=== PATIENT | female | born 1950 | race African-American/Black ===

== ENCOUNTER 2025-10-20 13:30 | Outpatient (AMB) | payer MEDICARE, SELFPAY ==
--- NOTE | 2025-10-20 13:32 | A.OFFVIS_ITS ---
Vital Signs 3 10/20/25 13:38 Height 5 ft 8.5 in Weight 260 lb BMI 39.0 BP 185/79 H Blood Pressure Location Lt brachial Position Sitting Pulse 74 Pulse Source Pulse Oximeter Pulse Oximetry (%) 98 Oxygen Delivery Method Room Air Intake Visit Reasons: IMMENSE PAIN FROM A FALL Intake Note: Pain today 05/22 Food Chemist Required: No Accompanied by: Self / Same As Patient Allergies tirzepatide (From [employer]) Allergy (Unknown, Verified 10/20/25 13:54) Constipation HPI Comments Details: The patient is a 75 year old female presenting for evaluation of right-sided mid back pain. She reports falling in late August or early September, hitting her right side on her hardwood floor. While she had other falls that week, this specific incident precipitated the onset of her current pain, which has progressively worsened over the last two months to the point where it sometimes impairs her ability to walk. The pain is described as an aching, tender sensation in the mid-back that radiates up and down the right side and to the ribs. It is exacerbated by standing, breathing, bending, and general movements, and is relieved by sitting. The patient attends physical therapy twice a week but notes her pain is worse on the days she is not in therapy. She previously used tramadol, which she discontinued due to limited efficacy, and now only takes gabapentin for both this pain and her underlying neuropathy. X-rays of her back revealed no rib fractures but showed moderate arthritis in the lower thoracic, with bone spurs formation at T11-T12, and degenerative disc disease that is more pronounced in the lower back. She also has cervical and lumbar spondylosis with degenerative disc changes. Her pertinent past medical history includes type 2 diabetes with a recent HbA1c of 8.6, for which she takes insulin. She has a history of a stroke in late 2020 that affected her right side, for which she takes clopidogrel. 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 Socially, she reports consuming wine but denies eating sweets. She has noted weight gain and has difficulty standing for long periods to cook, a problem that began after her stroke and has been exacerbated by her current back pain. - Onset: The pain began approximately two months ago, in late August, after a fall. - Location: The pain is primarily located in the right mid-back. - Radiation: The pain radiates up and down the right side and involves the ribs. - Character: The pain is described as aching and tender. - Exacerbating factors: Pain is worse with standing, breathing, bending, general movements, and backward bending (extension). - Relieving factors: Sitting helps to alleviate the pain. - Interference with function: The pain has at times made it difficult to walk and has exacerbated an existing inability to stand for long periods, preventing her from cooking. - Analgesia: The patient currently uses gabapentin for her pain and associated neuropathy. - She discontinued tramadol early on as it provided only a few hours of relief. - Activities of Daily Living: Her pain interferes with her ability to walk and stand for long periods, which prevents her from cooking. - She attends physical therapy twice weekly, but reports increased pain on her days off from therapy. - Aberrant Drug Related Behaviors: The patient denies mixing alcohol with her medications and takes her gabapentin primarily at bedtime. [facility]LY [facility] Medical History Hypercholesterolemia Peripheral arterial disease Weakness Type 2 diabetes mellitus with vascular disease Hypertension History of stroke Glaucoma DVT (deep venous thrombosis) Aortic stenosis Blindness and low vision Social History Alcohol intake: current Alcohol intake frequency: a few times a week Alcohol type: wine Review of Systems Const Details: - Neurological: Reports symptoms of peripheral neuropathy. - Denies dizziness or falls related to alcohol use. - Denies headaches. - Musculoskeletal: Reports aching and tender pain in the right mid-back, radiating to the side and ribs, which worsens with movement and improves with sitting. - Reports pain with bending backward. - Ophthalmologic: Reports vision loss in her right eye secondary to glaucoma and stroke. All systems reviewed & are unremarkable except as noted in HPI and below Physical Exam Vital Signs: Last Vital Signs Pulse 74 10/20/25 13:38 BP 185/79 H 10/20/25 13:38 Pulse Ox 98 10/20/25 13:38 Oxygen Delivery Method Room Air 10/20/25 13:38 BMI result Body Mass Index 39.0 General: Appears afebrile. Alert and oriented. Mood and affect appropriate. Follows and participates in conversation appropriately. Respiratory effort is unlabored. No cough. Able to transition from sit to stand unassisted. Uses cane with ambulation. Ambulates with bilaterally normal heel strike and toe off. General: Yes no CVA tenderness Back/Spine/Pelvis Other: Limited lumbar ROM due to pain. Mild midline and right sided TTP in the lower thoracic and paraspinal regions, no TTP in cervical or lumbar regions. Demonstrates 5/5 strength of quadriceps bilaterally as well as flexion/dorsiflexion of bilateral feet against resistance. 2+ pedal pulses bilaterally. Straight leg rise with dorsiflexion negative bilaterally. Diminished patellar and achilles reflexes bilaterally. Facet loading test positive bilaterally. Back: no CVA tenderness Cervical Spine: cervical ROM normal, cervical muscular tenderness and No Cervical spine tenderness Thoracic/Lumbar Spine: thoracic and lumbar spine normal to inspection, No Thoracic/lumbar spine scar(s), Lasegue's sign negative, straight leg raise negative bilaterally, pain with thoraco-lumbar ROM, paraspinal muscle tenderness on the right in the lower thoracic and in the upper lumbar, thoraco-lumbar ROM limited, thoracic spinal tenderness (lower thoracic) and No lumbar spinal tenderness Sacroiliac joints: bilaterally nontender Results Reviewed Results Reviewed: Assessment & Plan Assessment & Plan (1) Spondylosis of thoracolumbar spine: Code(s): M47.815 - Spondylosis without myelopathy or radiculopathy, thoracolumbar region Category: Medical (2) Mid back pain on right side: Code(s): M54.9 - Dorsalgia, unspecified Category: Medical (3) Lumbar degenerative disc disease: Code(s): M51.369 - Other intervertebral disc degeneration, lumbar region without mention of lumbar back pain or lower extremity pain Category: Medical (4) Chronic pain syndrome: Code(s): G89.4 - Chronic pain syndrome Category: Medical Plan The patient's right-sided back pain is assessed to be musculoskeletal in origin, resulting from her fall two months ago, which has aggravated her underlying moderate thoracolumbar arthritis as seen on x-ray. Given the patient's elevated HbA1c of 8.6, she is not a candidate for therapeutic steroid injections or peripheral nerve stimulation. Steroid injections are also relatively contraindicated due to her history of glaucoma with high intraocular pressures. The plan is to proceed with diagnostic right-sided medial branch blocks at T11, T12, and L1 with local and fluoroscopy. If these blocks provide her significant and temproary pain relief, she will be considered a candidate for a subsequent radiofrequency ablation (RFA) procedure for longer-term pain control. Clearance will be obtained from her PCP to temporarily discontinue her clopidogrel prior to the procedure. Expectations, risks and benefits were reviewed. Patient is aware she will be contacted to schedule this procedure. All questions and concerns have been answered and patient agreed with the treatment plan. Follow up after injections and sooner as needed. Patient was informed and verbally consented to the use of an ambient scribe for clinic note documentation during this visit. Coding Level of Care Code New Pt Level 4 (18163) Diagnoses Spondylosis of thoracolumbar spine M47.815 Mid back pain on right side M54.9 Lumbar degenerative disc disease M51.369 Chronic pain syndrome G89.4
[2025-10-20 13:38] VITALS: BP 185/79; PULSE 74; O2SAT 98; BMI 39.0
--- OUTSIDE RECORDS SUMMARY | 2025-10-20 22:17 | XMS_ITS | Clinical Summary ---
Author Organization [address] Address [address] [place] [phone] Phone Care Team Providers Care Radar Repairer Name Role Phone Ajay Alex Primary Care Provider [phone] Allergies No known active allergies Medications carvediloL (COREG) 25 mg tablet Take 1 Tablet by mouth 2 times daily (with meals). 07/09/2024 Active amLODIPine (NORVASC) 10 mg tablet TAKE 1 TABLET BY MOUTH ONCE DAILY 05/09/2024 Active clopidogreL (PLAVIX) 75 mg tablet TAKE ONE TABLET BY MOUTH EVERY DAY 05/02/2024 Active chlorthalidone (HYGROTON) 25 mg tablet Take 1 Tablet by mouth daily. 05/02/2024 Active blood-glucose meter,continuous (FreeStyle Luis 3 [place]) misc 1 Device by Does not apply route daily. 12/27/2023 Active ammonium lactate (LAC-HYDRIN) 12 % lotion Apply to soles of feet daily. At night wear socks to bed 12/19/2023 Active gabapentin (NEURONTIN) 400 mg capsule Take 1 Capsule by mouth 3 times daily. 12/18/2023 Active insulin syringe-needle U-100 1/2 mL 28 gauge syringe Use 4 times a day with insulin 05/24/2021 Active brimonidine (ALPHAGAN) 0.2 % ophthalmic solution 1 Drop 3 times daily. Active dorzolamide-karl loL (COSOPT) 22.3-6.8 mg/mL ophthalmic solution apply 1 Drop to the eye 2 times daily. Both eyes. Active lisinopril (PRINIVIL,ZESTRI L) 40 mg tablet TAKE ONE TABLET BY MOUTH EVERY DAY 90 tablet 1 10/15/2024 Active atorvastatin (LIPITOR) 80 mg tablet TAKE ONE TABLET BY MOUTH ONCE DAILY 90 tablet 1 10/15/2024 Active blood-glucose sensor (FreeStyle Luis 3 Sensor) deviceIndication s:Type 2 diabetes mellitus without complications, unspecified whether exterminator termite insulin use ([facility] V24, [facility] V28) 1 Device by Does not apply route every 14 days. 6 each 3 08/15/2025 Active freestyle (FreeStyle Lancets) 28 gauge lancetsIndicatio ns:Type 2 diabetes mellitus without complications, unspecified whether exterminator termite insulin use ([facility] V24, [facility] V28) Use to check BS daily 400 each 11 08/15/2025 Active insulin glargine (Lantus Solostar U-100 Insulin) 100 unit/mL (3 mL) injection penIndications:T ype 2 diabetes mellitus without complications, unspecified whether exterminator termite insulin use ([facility] V24, [facility] V28) Inject 40 Units into the skin every evening for 90 days. 45 mL 3 08/15/2025 Active metFORMIN (GLUCOPHAGE) 500 mg tabletIndication s:Type 2 diabetes mellitus without complications, unspecified whether exterminator termite insulin use ([facility] V24, [facility] V28) Take 1 Tablet by mouth 2 times daily (with meals). 180 tablet 3 08/15/2025 Active blood sugar diagnostic (FreeStyle Lite Strips) test strip Use to check BS daily 100 each 12 08/15/2025 08/15/20 26 Active blood-glucose meter kit Use to check BS daily 1 each 08/15/2025 Active Active Problems Problem Noted Date Diagnosed Date Chronic venous insufficiency of lower extremity 12/18/2024 Leg pain, bilateral 12/18/2024 Osteopenia 06/11/2024 Right sided weakness 07/27/2022 Peripheral vascular disease 06/15/2022 Aortic stenosis 12/30/2021 Overview (10/03/2024): Last Assessment & Plan: Patient's is mild and not likely to give her symptoms. Continue with periodic evaluations. Diabetic retinopathy 08/09/2020 Diabetes mellitus with cataract 06/12/2018 Unintentional weight loss 02/27/2018 Overview (10/03/2024): 08/2016: 12-20 lbs in about 4 months time Glaucoma 01/31/2018 HTN (hypertension) 01/31/2018 Overview (10/03/2024): Last Assessment & Plan: Patient's blood pressure is well controlled on current treatment plan. Continue current regimen with periodic follow up Hypercholesteremia 01/31/2018 Overview (10/03/2024): Last Assessment & Plan: Patient's LDL is reasonably well controlled. If her LDL is above her target of <70 at her next check, can suggest transition to crestor. Updated lipid profile ordered to be completed at her convenience. Obesity 01/31/2018 Type 2 diabetes mellitus without complications 0 01/31/2018 Encounters Date Type Department Care Team Description 09/04/2025 11:00 AM EDT - 09/04/2025 11:59 PM EDT Hospital Encounter [facility] CT Scan [address] [place] [phone] Headache; Status post fall Discharge Disposition: Home or Self Care 08/15/2025 11:30 AM EDT Office Visit Endocrinology [address] [phone] Moraima Tabares PA Type 2 diabetes mellitus without complications, unspecified whether residential insulin use ([facility] V24, [facility] V28) (Primary Dx); Secondary hypertension; Hypercholesteremia from Last 3 Months Immunizations Immunization Administration Dates Next Due Pfizer SARS-CoV-2 COVID-19, mRNA, LNP-S, preservative free 03/02/2021 Pneumococcal conjugate 13 va lent (Prevnar 13, PCV13) 2mo and older 09/06/2016 Pneumococcal conjugate 20 va lent (Prevnar 20, PCV 20) 2mo and older 04/18/2023 Pneumococcal polysaccharide 23 valent (Pneumovax 23) 2yo and older 01/31/2018,11/13/2012 Tdap Tetanus diptheria acell ular pertussis (Boostrix; Adacel) 7yo and older 01/10/2019 Surgical History Surgery Date Site/Laterality Comments COLONOSCOPY 1999 PROCEDURE: HISTORICAL COLONOSCOPY; COMMENT: per pt, screening colonoscopy 1999 Medical History Medical History Date Comments Glaucoma 01/31/2018 DX:Glaucoma HTN (hypertension) 01/31/2018 DX:HTN (hyper tension) Hypercholesteremia 01/31/2018 DX:Hyperchole steremia Type 2 diabetes mellitus wit hout complications ([facility] V24, [facility] V28) 01/31/2018 DX:Type 2 kesha betes mellitus without complications (HCC) Unintentional weight loss 02/27/2018 DX:Uni ntentional weight loss; COMMENT: 08/2016: 12-20 lbs in about 4 months time History of DVT of lower extremity 02/27/2018 DX:History of DVT of lower extremity Obesity 01/31/2018 DX:Obesity Family history of breast cancer 02/01/2018 DX:Family history of breast cancer; COMMENT: Mother 30's, Aunt 44 Colon cancer screening 01/31/2018 DX:Colon cancer screening; COMMENT: Colonoscopy per pt approx 2006. Diabetic retinopathy ([facility] V24, [facility] V28) 08/09/2020 DX:Diabetic retinopathy (HCC ) Cerebrovascular accident (CV A) ([facility] V24, [facility] V28) 12/29/2021 DX:Cerebrovascular accident (CVA) ([facility]) Family History Medical History Relation Name Comments Breast cancer Aunt 1 maternal Glaucoma Aunt 2 maternal Other: Other Brother 1 aneurysm Coronary artery disease Father Heart attack Father Prostate cancer Maternal Grandfather Breast cancer Mother Coronary artery disease Mother Glaucoma Mother Hypertension Mother CAD, Breast CA in her 30's Breast cancer Sister Diabetes Sister Relation Name Status Comments Aunt 1 maternal Aunt 2 maternal Brother 1 Brother 2 Alive Father Maternal Grandfather Mother Sister Social History Tobacco Use Types Packs/Day Years Used Date Smoking Tobacco: Former Cigarettes 1 30 0 11/13/1968 - 11/13/1998 Smokeless Tobacco: Never Alcohol Use Standard Drinks/Week Comments Yes 1 (1 standard drink = 0.6 oz pur e alcohol) Comments Unknown Sex and Gender Information Value Date Recorded Sex Assigned at Not on file Legal Sex Female 7:54 PM EST Gender Identity Not on file Sexual Orientation Not on file Last Filed Vital Signs Vital Sign Reading Time Taken Comments Blood Pressure 137/68 08/15/2025 11:39 AM EDT Pulse 73 08/15/2025 11:39 AM EDT Temperature 36.4 C (97.5 F) 08/15/2025 11:23 AM EDT Respiratory Rate - - Oxygen Saturation 95% 06/06/2024 2:5 7 PM EDT at rest, room air Inhaled Oxygen Concentration - - Weight 115 kg (253 lb 12.8 oz) 08/15/2025 11:23 AM EDT Height 174 cm (5' 8.5 ) 08/15/2025 11:2 3 AM EDT Body Mass Index 38.03 08/15/2025 11:23 AM EDT Plan of Treatment Upcoming Encounters Date Type Department Care Team (Late st Contact Info) Description 11/20/2025 10:30 AM EST Office Visit Orthopedic Surgery - [place] [address] [phone] Parviz Gibbons, DPM [address] [phone] Health Maintenance Due Date Last Done Comments RSV Immunization Adult Patients (1 - Risk 50-74 years 1-dose series) 2001 Zoster Vaccines (1 of 2) 2001 Falls Risk Assessment 10/22/2022 Medicare Annual Wellness Visit 10/22/2022 Social Influencers of Health Screening 10/22/2022 Depression Screening 11/13/2024 Diabetes: Blood Sugar Control Test (HGBA1C) 01/09/2025 07/09/2024, 07/09/2024, 04/02/2024, Additional history exists Diabetes: Annual Urine Albumin-Creatinine Ratio (uACR) 04/02/2025 04/02/2024 COVID-19 Vaccine ( season) 2025 10/15/2021, 03/26/2021, 03/02/2021 Influenza Vaccine (#1) 2025 Diabetes: Annual GFR (Glomerular Filtration Rate) 09/30/2025 09/30/2024, 12/25/2023 Hypertension/CHF/CAD Annual BMP Blood Test 09/30/2025 09/30/2024, 12/25/2023 Breast Cancer Screening 03/11/2026 03/11/20 24, 03/06/2024, 03/06/2024, Additional history exists Diabetes: Annual Foot Exam 04/29/2026 04/29/2025, Diabetes: Annual Retina Eye Exam 08/05/2026 08/05/2025, 05/14/2024 Colorectal Cancer Screening: FIT-DNA (Cologuard) 06/16/2027 06/16/2024, 06/16/2024 Cholesterol Screening (Lipid Panel) 12/25/2028 12/25/2023, 08/19/2016 DTaP,Tdap,and Td Vaccines (2 - Td or Tdap) 01/10/2029 01/10/2019 Osteoporosis Screening (Bone Density Screening) 06/11/2034 06/11/2024, 06/11/2024 Hepatitis C Screening Completed 01/10/2019, 016 Pneumococcal Vaccine: 50+ Years Completed 04/18/2023, 01/31/2018, 09/06/2016, Additional history exists HIB Vaccines Aged Out No longer eligi ble based on patient's age to complete this topic HPV Vaccines Aged Out No longer eligi ble based on patient's age to complete this topic Hepatitis A Vaccines Aged Out No long er eligible based on patient's age to complete this topic Hepatitis B Vaccines Aged Out No long er eligible based on patient's age to complete this topic IPV Vaccines Aged Out No longer eligi ble based on patient's age to complete this topic MMR Vaccines Aged Out No longer eligi ble based on patient's age to complete this topic Meningococcal ACWY Vaccine Aged Out N o longer eligible based on patient's age to complete this topic Meningococcal B Vaccine Aged Out No l onger eligible based on patient's age to complete this topic RSV Immunization Patients Under 20 months Aged Out No longer eligible based on patient's age to complete this topic Varicella Vaccines Aged Out No longer eligible based on patient's age to complete this topic Procedures Procedure Name Priority Date/Time Associated Diagnosis Comments CT HEAD WO CONTRAST Routine 09/04/2025 1 1:26 AM EDT Headache Status post fall POC GLUCOSE Routine 08/15/2025 11:39 AM EDT Type 2 diabetes mellitus without complications, unspecified whether residential insulin use ([facility] V24, [facility] V28) BASIC METABOLIC PANEL Routine 09/30/2024 1:35 PM EST Primary open angle glaucoma of both eyes HEMOGLOBIN A1C Routine 07/09/2024 FIT-DNA Routine 06/16/2024 [facility] DEXA AXIAL SKELETON Routine 06/11/2024 11:36 AM EDT Encounter for screening for osteoporosis DIABETES EYE EXAM Routine 05/14/2024 URINE ALBUMIN CREATININE RATIO Routine 04/02/2024 [facility] SCREENING DIGITAL Routine 03/06/2024 5:01 PM EDT Encounter for screening mammogram for malignant neoplasm of breast LIPID PANEL Routine 12/25/2023 DIABETES FOOT EXAM Routine 12/19/2023 HEPATITIS C SCREENING Routine 01/10/2019 from Last 3 Months or Most Recently Relevant to Health Maintenance Results * CT Head wo Contrast (09/04/2025 11:26 AM EDT) Anatomical Region Laterality Modality Head and Neck Computed Tomogra phy 09/09/2025 5:38 PM EDT Impressions 09/09/2025 5:40 PM EDT NO ACUTE INTRACRANIAL ABNORMALITY. -------- FINAL REPORT -------- Dictated By: Dileep Phoenix Dictated Date: 09/09/2025 17:38 ET Assigned Physician: Dileep Phoenix Reviewed and Electronically Signed By: Dileep Phoenix Signed Date: 09/09/2025 17:40 ET Workstation ID: [id number] Transcribed By: Self Edit Transcribed Date: 09/09/2025 17:38 ET Narrative 09/09/2025 5:40 PM EDT PROCEDURE: HEAD CT INDICATION: left sided injury to head TECHNIQUE: CT of the head without intravenous contrast. Multiplanar reformats. The examination was performed utilizing dose reduction techniques. Total DLP 1065 COMPARISON: No priors available. FINDINGS: No acute territorial infarct, mass effect, or intracranial hemorrhage. Mild scattered periventricular and subcortical white matter hypodensities are most likely related to chronic small vessel ischemic change. CSF spaces commensurate for degree of volume loss. No hydrocephalus. Visualized paranasal sinuses are clear. Mastoid air cells are clear. No calvarial fracture. Procedure Note Dileep Phoenix MD - 09/09/2025 PROCEDURE: HEAD CT INDICATION: left sided injury to head TECHNIQUE: CT of the head without intravenous contrast. Multiplanarreformats. The examination was performed utilizing dose reductiontechniques. Total DLP 1065 COMPARISON: No priors available. FINDINGS: No acute territorial infarct, mass effect, or intracranial hemorrhage. Mild scattered periventricular and subcortical white matter hypodensitiesare most likely related to chronic small vessel ischemic change. CSF spaces commensurate for degree of volume loss. No hydrocephalus. Visualized paranasal sinuses are clear. Mastoid air cells are clear. No calvarial fracture. IMPRESSION: NO ACUTE INTRACRANIAL ABNORMALITY. -------- FINAL REPORT -------- Dictated By: Dileep Phoenix Dictated Date: 09/09/2025 17:38 ET Assigned Physician: Dileep Phoenix Reviewed and Electronically Signed By: Dileep Phoenix Signed Date: 09/09/2025 17:40 ET Workstation ID: [id number] Transcribed By: Self Edit Transcribed Date: 09/09/2025 17:38 ET us Ajay JUAREZ IMG CT PROCEDURES Final Resul t * POC glucose manually resulted (08/15/2025 11:39 AM EDT) Glucose POC 94 mg/dL Blood Capillary blood specimen / Unknown 08/15/2025 11:39 AM EDT Moraima JUAREZ POINT OF CARE TEST ENTER/ED IT ORDERABLES Final Result * (ABNORMAL) Basic metabolic panel (09/30/2024 1:35 PM EST) Sodium 142 133 - 145 mmol/L LAB CHEMISTRY METHOD 09/30/2024 5:28 PM [facility] Potassium 3.7 3.5 - 5.5 mmol/L LAB CHEMISTRY METHOD 09/30/2024 5:28 PM [facility] Chloride 107 96 - 110 mmol/L LAB CHEMISTRY METHOD 09/30/2024 5:28 PM [facility] CO2 26 21 - 32 mmol/L LAB CHEMISTRY METHOD 09/30/2024 5:28 PM [facility] Anion Gap 9 3 - 11 LAB CHEMISTRY METHOD 09/30/2024 5:28 PM [facility] Glucose 186(H) 70 - 100 mg/dL LAB CHEMISTRY METHOD 09/30/2024 5:28 PM [facility] BUN 32(H) 5 - 25 mg/dL LAB CHEMISTRY METHOD 09/30/2024 5:28 PM [facility] Creatinine 0.94 0.50 - 1.10 mg/dL LAB CHEMISTRY METHOD 09/30/2024 5:28 PM [facility] eGFR 65 >=60 mL/min/1. 73m2 LAB CHEMISTRY METHOD 09/30/2024 5:28 PM [facility] Comment:Calculation based on the Chronic Kidney Disease Epidemiology Collaboration (CKD-EPI) equation refit without adjustment for race. BUN/Creatinine Ratio 34.0 LAB CHEMISTRY METHOD 09/30/2024 5:28 PM [facility] Calcium 9.8 8.5 - 10.5 mg/dL LAB CHEMISTRY METHOD 09/30/2024 5:28 PM [facility] Blood Venous blood specimen / Unknown Venipuncture / Unknown 09/30/2024 1:35 PM EST 09/30/2024 1:35 PM EST Mark Schmitt MD LAB BLOOD ORDERABLES Final Resul t [facility] [address] [place] [address], * (ABNORMAL) Hemoglobin A1c (07/09/2024) [facility] Hemoglobin A1C 7.6(A) <=6.5 % Blood Venous blood specimen / Unknown Historical Provider LAB BLOOD ORDERABLES Tracy l Result * FIT-DNA (Cologuard) (06/16/2024) [facility] Colorectal Cancer Screening: FIT-DNA (Cologuard) Negative, Abstracted Historical Provider HEALTH MAINTENANCE Final Result * [facility] DEXA AXIAL SKELETON (06/11/2024 11:36 AM EDT) Anatomical Region Laterality Modality Mammography 06/11/2024 10:5 4 AM EDT Narrative 06/11/2024 11:[address] [facility] Diagnostic Imaging Department [address] [place] [address] Patient: AURELIANO ABREU/Age/Sex: 1950 - 73 - F Unit#: [id number] Location/Status: SPDIMAM/REG CLI Mnemonic/Ordering Site: MAMDEXAAX/SPMAM Ordering Physician: UNIQUE MCHUGH MD [facility] Dexa Axial Skeleton - 06/11/24 - 1125 Report Status:Signed HISTORY: The patient is a 73-year-old postmenopausal female with clinical concern for metabolic bone disease. FINDINGS: Dual energy x-ray absorptiometry of the lumbar spine and femurs is performed. The mean bone mineral density at L1-L4 is 0.944 gm/cm2 which is 80% of that of young normals and 79% of that of age matched controls. This yields a T-score of -2.0 and a Z-score of -2.1 which is diagnostic of osteopenia. The mean bone mineral density of the femurs bilaterally is 1.132 gm/cm2 which is 112% of that of young normals and 110% of that of age matched controls. This yields a T-score of 1.0 and a Z-score of 0.8 and there is therefore no evidence of osteoporosis or osteopenia here. IMPRESSION: 1. Osteopenia. 2. FRAX analysis yields a 10-year probability of major osteoporotic fracture of 5.3% and a 10-year probability of hip fracture of 0.4%. Code 88336 Dictating Physician: REBECCA SOTO MD Electronically Signed by: REBECCA SOTO MD Dic Date/Time: 06/11/24 1135 Sign date/Time: 06/11/24 1136 Procedure Note Rebecca Soto MD - 08/28/2024 [facility] Diagnostic Imaging Department [address] [place] [address] Patient: AURELIANO ABREU/Age/Sex: 1950 - 73 - F Unit#: [id number] [facility] CLI Mnemonic[facility] Ordering Physician: UNIQUE MCHUGH MD [facility] Dexa Axial Skeleton - 06/11/24 - 1125 Report Status:Signed HISTORY: The patient is a 73-year-old postmenopausal female withclinical concern for metabolic bone disease. FINDINGS: Dual energy x-ray absorptiometry of the lumbar spine and femursis performed. The mean bone mineral density at L1-L4 is 0.944 gm/cm2 which is80% of that of young normals and 79% of that of age matched controls. Thisyields a T-score of -2.0 and a Z-score of -2.1 which is diagnostic of osteopenia. The mean bone mineral density of the femurs bilaterally is 1.132 gm/fp1nowoc is 112% of that of young normals and 110% of that of age matched controls.This yields a T-score of 1.0 and a Z-score of 0.8 and there is therefore noevidence of osteoporosis or osteopenia here. IMPRESSION: 1. Osteopenia. 2. FRAX analysis yields a 10-year probability of major osteoporoticfracture of 5.3% and a 10-year probability of hip fracture of 0.4%. Code 22069 Dictating Physician: REBECCA SOTO MD Electronically Signed by: REBECCA SOTO MD Dic Date/Time: 06/11/24 1135 Sign date/Time: 06/11/24 1136 Unique Mchugh MD IMG BI PROCEDURES Final Result * Diabetes Eye Exam (05/14/2024) Pathologist [facility] Diabetes: Annual Retina Eye Exam Abstracted Historical Provider HEALTH MAINTENANCE Final Result * Urine Albumin Creatinine Ratio (04/02/2024) [facility] Urine Albumin Creatinine Ratio Abstracted Historical Provider HEALTH MAINTENANCE Final Result * [facility] SCREENING DIGITAL (03/06/2024 5:01 PM EDT) Anatomical Region Laterality Modality Mammography 03/06/2024 12:5 5 PM EDT Narrative 03/06/2024 5:[address] [facility] Diagnostic Imaging Department [address] [place] [address] Patient: AURELIANO ABREU /Age/Sex: 1950 - 73 - F Unit#: [id number] Location/Status: [facility] CLI Mnemonic/Ordering Site: [facility] Ordering Physician: UNIQUE MCHUGH MD [facility] Screening Digital - 03/06/24 - 1342 Report Status:Signed EXAM: [facility] Screening Digital EXAM DATE AND TIME: 03/06/2024 1:43 PM HISTORY: Screening. Family history of breast carcinoma including mother and sister. COMPARISON: 07/24/20, 05/07/19, 03/26/18 TECHNIQUE: Bilateral digital breast tomosynthesis was performed in the CC and MLO projections. Computer aided detection with Inneractive 3D 3.1 was employed. TISSUE DENSITY: b. There are scattered areas of fibroglandular density. FINDINGS: A small group of calcifications is seen in the anterior right breast without associated mass. Spot compression magnification views are recommended. There are multiple additional groups of calcifications elsewhere in both breasts which appear very coarse and benign in appearance. Suspect the small group in the anterior breast represent part of the same process. Multiple benign rim calcifications are scattered bilaterally. A circumscribed 9 mm nodule remains stable in the upper outer right breast and there is a similar nodule in the posterolateral left breast, also unchanged. No architectural distortion is seen. Vascular calcification is present. The skin is unremarkable. IMPRESSION: 1. Small group of calcifications in the anterior right breast, likely related to a benign process but increased from the previous studies. Spot compression magnification views are recommended. 2. No mammographic evidence of malignancy is seen in the left breast. No significant change. BI-RADS: Category 0: Incomplete - Need Additional Imaging Evaluation RECOMMENDATION(S): 1: Special mammographic view(s) needed RIGHT Dictating Physician: TASH CASON MD Electronically Signed by: TASH CASON MD Dic Date/Time: 03/06/24 1653 Sign date/Time: 03/06/24 1701 Procedure Note Tash Cason MD - 07/01/2024 [facility] Diagnostic Imaging Department [address] [place] [address] Patient: AURELIANO ABREU D.O.B./Age/Sex: 1950 - 73 - F Unit#: [id number] Location/Status: [facility] CLI Mnemonic/Ordering Site: [facility] Ordering Physician: UNIQUE MCHUGH MD [facility] Screening Digital - 03/06/24 - 1342 Report Status:Signed EXAM: [facility] Screening Digital EXAM DATE AND TIME: 03/06/2024 1:43 PM HISTORY: Screening. Family history of breast carcinoma including motherand sister. COMPARISON: 07/24/20, 05/07/19, 03/26/18 TECHNIQUE: Bilateral digital breast tomosynthesis was performed in the CCand MLO projections. Computer aided detection with [employer] 3D 3.1was employed. TISSUE DENSITY: b. There are scattered areas of fibroglandular density. FINDINGS: A small group of calcifications is seen in the anterior right breastwithout associated mass. Spot compression magnification views are recommended. There are multiple additional groups of calcifications elsewhere in both breasts which appear very coarse and benign in appearance. Suspect thesmall group in the anterior breast represent part of the same process. Multiple benign rim calcifications are scattered bilaterally. Acircumscribed 9 mm nodule remains stable in the upper outer right breast and there is asimilar nodule in the posterolateral left breast, also unchanged. Noarchitectural distortion is seen. Vascular calcification is present. The skin is unremarkable. IMPRESSION: 1. Small group of calcifications in the anterior right breast, likelyrelated to a benign process but increased from the previous studies. Spotcompression magnification views are recommended. 2. No mammographic evidence of malignancy is seen in the left breast. No significant change. BI-RADS: Category 0: Incomplete - Need Additional Imaging Evaluation RECOMMENDATION(S): 1: Special mammographic view(s) needed RIGHT Dictating Physician: TASH CASON MD Electronically Signed by: TASH CASON MD Dic Date/Time: 03/06/24 1658 Sign date/Time: 03/06/24 1701 Unique Mchugh MD IMG BI PROCEDURES Final Result * Lipid panel (12/25/2023) [facility] LDL/HDL Ratio 2 0 - 4 Triglycerides 61 0 - 150 mg/dL Cholesterol 148 0 - 200 mg/dL HDL 79 >=40 mg/dL LDL Cholesterol 57 0 - 100 mg/dL Blood Venous blood specimen / Unknown Historical Provider LAB BLOOD ORDERABLES Tracy l Result * Diabetes Foot Exam (12/19/2023) [facility] Diabetes: Annual Foot Exam Abstracted Historical Provider HEALTH MAINTENANCE Final Result * Hepatitis C Screening (01/10/2019) [facility] Hepatitis C Screening Abstracted us Historical Provider HEALTH MAINTENANCE Final Result from Last 3 Months or Most Recently Relevant to Health Maintenance Insurance [employer] MEDICARE Advance Directives Documents on File Type Date Recorded Patient Home Manager Expl anation Health Care Decision (hx) 10/25/2021 AD LENZ DIRECTIVE Health Care Decision (hx) 10/25/2021 AD LENZ DIRECTIVE Health Care Decision (hx) 10/25/2021 AD LENZ DIRECTIVE Health Care Decision (hx) 10/25/2021 AD LENZ DIRECTIVE Health Care Decision (hx) 10/25/2021 AD LENZ DIRECTIVE Health Care Decision (hx) 10/25/2021 AD LENZ DIRECTIVE Health Care Decision (hx) 10/25/2021 AD LENZ DIRECTIVE Health Care Decision (hx) 10/25/2021 AD LENZ DIRECTIVE Health Care Decision (hx) 10/25/2021 AD LENZ DIRECTIVE Health Care Decision (hx) 10/25/2021 AD LENZ DIRECTIVE Health Care Decision (hx) 10/25/2021 AD LENZ DIRECTIVE Health Care Decision (hx) 10/25/2021 AD LENZ DIRECTIVE Health Care Decision (hx) 10/25/2021 AD LENZ DIRECTIVE Health Care Decision (hx) 10/25/2021 AD LENZ DIRECTIVE Health Care Decision (hx) 10/25/2021 AD LENZ DIRECTIVE Health Care Decision (hx) 10/25/2021 AD LENZ DIRECTIVE Health Care Decision (hx) 10/25/2021 AD LENZ DIRECTIVE Health Care Decision (hx) 10/25/2021 AD LENZ DIRECTIVE Health Care Decision (hx) 10/25/2021 MARYJO LENZ DIRECTIVE Care Teams Radar Repairer Relationship Specialty Start Date End Date Ajay Alex PA [address] [place] [address] PCP - General Primary Care 04/25/25
--- OUTSIDE RECORDS SUMMARY | 2025-10-20 22:17 | XMS_ITS | Encounter Summary ---
Author Organization [facility] Address [address] [place] [address] Care Team Providers Care Hardness Inspector Name Role Phone Gus Veras MD Primary Care Provider [phone] Encounter Details Date Type Department Care Team (Late st Contact Info) Description 08/18/2016 Scanned Document [facility] Internal Medicine [facility]. [address] [facility] [address] [place], [place] [id number] Gus Veras MD [address] [place] [phone] Social History Tobacco Use Types Packs/Day Years Used Date Smoking Tobacco: Never Assessed Comments Unknown Sex and Gender Information Value Date Recorded Sex Assigned at Female 09/21/2021 2:16 PM EST Legal Sex Female 10:46 AM EDT Gender Identity Female 09/21/2021 2:16 PM EST Sexual Orientation Straight 09/21/2021 2: 16 PM EST documented as of this encounter Plan of Treatment Not on file documented as of this encounter Visit Diagnoses Not on filedocumented in this encounter Care Teams Hardness Inspector Relationship Specialty Start Date End Date Gus Veras MD [address] [place] [phone] PCP - General Internal Medicine 08/19/16 09/12/18 documented as of this encounter
--- OUTSIDE RECORDS SUMMARY | 2025-10-20 22:17 | XMS_ITS | Clinical Summary ---
Author Organization [facility] Address [address] [facility] [address] [place] [id number] Phone Care Team Providers Care Asphalt Heater Operator Name Role Phone Unavailable Primary Care Provider Unavailabl e Social History Tobacco Use Types Packs/Day Years Used Date Smoking Tobacco: Never Assessed Education Answer Date Recorded Are you interested in more education? Not on jarvis e 03/11/2023 Are you concerned about learning? Not on file 03/11/2023 No 03/11/2023 No 03/11/2023 Digital Access Answer Date Recorded No 04/11/2023 No 04/11/2023 Reliable internet access at home? Not on file 04/11/2023 Device with a working camera? Not on file Comments Unknown Sex and Gender Information Value Date Recorded Sex Assigned at Not on file Legal Sex Female 8:15 AM EST Gender Identity Not on file Sexual Orientation Not on file Plan of Treatment Not on file Medical Devices Not on file Additional Source Comments The information contained in this document represents components of the legal health record. It is not the complete legal health record.[facility]
--- OUTSIDE RECORDS SUMMARY | 2025-10-20 22:17 | XMS_ITS | Clinical Summary ---
Author Organization [address] [id number] Care Team Providers Care Cloud Infrastructure Architect Name Role Phone Unavailable Primary Care Provider Unavailabl e Allergies No known active allergies Medications latanoprost (XALATAN) 0.005 % ophthalmic solution 1 drop nightly. Acti ve dorzolamide-karl lol (COSOPT) 22.3-6.8 mg/mL ophthalmic solution 1 drop 2 (two) times daily. Active lancets lancets Test 4 x daily. Onetouch Delica lancet 100 each 3 6 Active blood sugar diagnostic (ONETOUCH ULTRA TEST) Strp Test 4 x daily 200 each 5 6 Active dulaglutide (TRULICITY) 0.75 mg/0.5 mL PnIjIndications: Type 2 diabetes, HbA1c goal < 7% (HC Code) (HC CODE) Inject 0.75 mg under the skin every 7 days. 4 Syringe 3 6 Active lisinopril (PRINIVIL,ZESTRI L) 40 MG tablet Take 1 tablet (40 mg total) by mouth daily.. 90 tablet 3 7 Active metFORMIN (GLUCOPHAGE XR) 500 MG 24 hr tablet Take 4 tablets (2,000 mg total) by mouth daily with dinner.. 360 tablet 3 7 Active amLODIPine (NORVASC) 10 MG tablet TAKE 1 TABLET BY MOUTH DAILY 30 tablet 7 Active insulin glargine (TOUJEO) 300 unit/mL (1.5 mL) subcutaneous injection pen 30 units daily 15 mL 8 Active pen needle, diabetic 32 gauge x 1/4 Ndle Inject 30 Units under the skin nightly.. novofine pen needles, test once daily 100 each 5 8 Active atorvastatin (LIPITOR) 20 MG tablet TAKE 1 TABLET BY MOUTH DAILY 30 tablet 8 Active chlorthalidone (HYGROTEN) 25 MG tablet TAKE 1 TABLET BY MOUTH DAILY 30 tablet 8 Active metoprolol succinate (TOPROL-XL) 50 MG 24 hr tablet TAKE 1 TABLET BY MOUTH DAILY WITH OR IMMEDIATLEY FOLLOWING A MEAL 30 tablet 8 Active Active Problems Problem Noted Date Diagnosed Date Type 2 diabetes, HbA1c goal < 7% (HC Code) 09/06 Essential hypertension 09/06/2016 Hyperglycemia 09/06/2016 Non morbid obesity due to excess calories 2015 Immunizations Immunization Administration Dates Next Due Pneumococcal conjugate PCV 13 09/06/2016 Pneumococcal polysaccharide PPSV23 11/13/2012 Family History Medical History Relation Name Comments Heart disease Father Cancer Maternal Aunt 1 breast Glaucoma Maternal Aunt 2 Cancer Maternal Grandfather prostat e Cancer Maternal Grandmother Cancer Mother breast Heart disease Mother Hypertension Mother Cancer Sister breast Diabetes Sister Hypertension Sister Relation Name Status Comments Father Maternal Aunt 1 Maternal Aunt 2 Maternal Grandfather Maternal Grandmother Mother Sister Social History Tobacco Use Types Packs/Day Years Used Date Smoking Tobacco: Never Alcohol Use Standard Drinks/Week Comments Yes 0 (1 standard drink = 0.6 oz pur e alcohol) Comments Unknown Sex and Gender Information Value Date Recorded Sex Assigned at Female 09/21/2021 2:16 PM EST Legal Sex Female 10:46 AM EDT Gender Identity Female 09/21/2021 2:16 PM EST Sexual Orientation Straight 09/21/2021 2: 16 PM EST 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 Not on file Not on file Last Filed Vital Signs Vital Sign Reading Time Taken Comments Blood Pressure 120/78 09/06/2016 10:59 AM EDT Pulse - - Temperature - - Respiratory Rate - - Oxygen Saturation - - Inhaled Oxygen Concentration - - Weight 103.9 kg (229 lb) 09/06/2016 10:59 AM EDT Height 174 cm (5' 8.5 ) 09/06/2016 10:59 AM EDT Body Mass Index 34.31 09/06/2016 10:59 AM EDT Plan of Treatment Health Maintenance Due Date Last Done Comments HIV screening 1964 Tetanus adult (Td q 10,TDAP once) 1971 Colon cancer screening, Colonoscopy 1996 Shingles vaccine (Shingrix) (1 of 2 - Shingrix (RZV) 2 Dose Standard Series) 2001 Osteoporosis screening (bone density) 2016 Diabetes screening 08/19/2019 08/19/2016, 08/19/2016 Lipid disorder screening 08/19/2021 08/19/2016 Pneumococcal Vaccine (50+ years) (3 of 3 - PCV20 or PCV21) 09/06/2021 09/06/2016, 11/13/2012 Breast cancer screening 09/23/2023 09/23/20 21, 07/24/2020, 09/05/2016 Influenza vaccine 06/13/2025 Covid-19 vaccine series (1 - 2024- season) 2025 RSV Immunization (1 - 1-dose 75+ series) 2026 Hepatitis C screening Completed 08/19/2016 Cervical cancer screening Discontinued Meningococcal B Vaccine Aged Out No l onger eligible based on patient's age to complete this topic Meningococcal Vaccine Aged Out No lian chari eligible based on patient's age to complete this topic Procedures Procedure Name Priority Date/Time Associated Diagnosis Comments MAMMO SCREENING JAVIER BILATERAL Routine 09/23/2021 2:37 PM EST Encounter for screening mammogram for malignant neoplasm of breast COMPREHENSIVE METABOLIC PANEL Routine 08/19/2016 1:32 PM EDT Unintentional weight loss Type 2 diabetes, HbA1c goal < 7% Hyperglycemia Non morbid obesity due to excess calories Essential hypertension Other fatigue Medication monitoring encounter LIPID PANEL Routine 08/19/2016 1:32 PM EDT Unintentional weight loss Type 2 diabetes, HbA1c goal < 7% Hyperglycemia Non morbid obesity due to excess calories Essential hypertension Other fatigue Medication monitoring encounter HEPATITIS C AB WITH REFLEX TO HCV PCR Routine 08/19/2016 1:32 PM EDT Unintentional weight loss Type 2 diabetes, HbA1c goal < 7% Hyperglycemia Non morbid obesity due to excess calories Essential hypertension Other fatigue Medication monitoring encounter from Last 3 Months or Most Recently Relevant to Health Maintenance Results * Mammography Screening Javier Bilateral (09/23/2021 2:37 PM EST) Anatomical Region Laterality Modality Breast Bilateral Mammography 09/23/2021 2:38 PM EST Narrative 09/29/2021 5:25 PM EST #[id number] - MAMMO SCREENING JAVIER BILATERAL: 09/23/2021 Digital breast tomosynthesis was performed and used in the interpretation of images. C-View (synthesized 2D) mammography was utilized. Current study was also evaluated with a Computer Aided Detection (CAD) system. Comparison is made to exams dated: 07/24/2020 mammogram - [facility], 09/13/2016 mammogram, and 09/05/2016 mammogram - . There are scattered areas of fibroglandular density. There are benign calcifications in both breasts. No significant masses, calcifications, or other findings are seen in either breast. There has been no significant interval change. IMPRESSION: BENIGN - BI-RADS 2 There is no mammographic evidence of malignancy. A 1 year screening bilateral mammogram is recommended. The patient was informed by letter of the results. Celia Adamson M.D. lp/penlinda:09/29/2021 17:25:09 Surgical Garment Inspector(s): Moira Seay, letter sent: 1 Year Screening Mammogram BI-RADS: 2 Benign Procedure Note Celia Adamson MD - 09/30/2021 #[id number] - MAMMO SCREENING JAVIER BILATERAL: 09/23/2021 Digital breast tomosynthesis was performed and used in the interpretation of images. C-View (synthesized 2D) mammography was utilized. Current study was also evaluated with a Computer Aided Detection (CAD) system. Comparison is made to exams dated: 07/24/2020 mammogram - [facility], 09/13/2016 mammogram, and 09/05/2016 mammogram - . There are scattered areas of fibroglandular density. There are benign calcifications in both breasts. No significant masses, calcifications, or other findings are seen in either breast. There has been no significant interval change. IMPRESSION: BENIGN - BI-RADS 2 There is no mammographic evidence of malignancy. A 1 year screening bilateral mammogram is recommended. The patient was informed by letter of the results. Celia Adamson M.D., lp/penrad:09/29/2021 17:25:09 Surgical Garment Inspector(s): Moira Seay, letter sent: 1 Year Screening Mammogram BI-RADS: 2 Benign us Analy Cruz MD IMG MAMMOGRAPHY ORDERA BLES Final Result * Hepatitis C antibody (08/19/2016 1:32 PM EDT) Hepatitis C Ab NON-REACTI VE NON-REACTI VE [facility] Signal To Cut-Off 0.02 <1.00 [facility] Blood specimen (specimen) 08/19/2016 1:32 PM EDT 08/20/2016 5:04 AM EDT Narrative Resulting Agency Comment Performing Organization Information: Site ID: [id number] Name: [facility] Address: [address] [place] [address], [facility] [place] [address] Director: Alicia Oliveira MD us Gus Veras MD LAB BLOOD ORDERABLES Tracy l Result Performing Organization Address City/State/[facility] Co de Phone Number [facility] [address] [place] [address] * (ABNORMAL) Lipid panel (08/19/2016 1:32 PM EDT) Cholesterol, Total 242(H) 125 - 200 mg/dL [facility] HDL 84 > OR = 46 mg/dL [facility] Triglycerides 107 <150 mg/dL [facility] LDL Cholesterol 137(H) <130 mg/dL (calc) [facility] Comment: Desirable range <100 mg/dL for patients with CHD or diabetes and <70 mg/dL for diabetic patients with known heart disease. Chol/HDL Ratio 2.9 < OR = 5.0 (calc) [facility] Non-HDL Cholesterol 158 mg/dL (calc) [facility] Comment: Target for non-HDL cholesterol is 30 mg/dL higher than LDL cholesterol target. Blood specimen (specimen) 08/19/2016 1:32 PM EDT 08/20/2016 5:04 AM EDT Narrative Resulting Agency Comment Performing Organization Information: Site ID: [id number] Name: [facility] Address: [address] [place] [address], [place] [address] Director: Alicia Oliveira MD us Gus Veras MD LAB BLOOD ORDERABLES Tracy l Result [facility] [address] [place] [address] * (ABNORMAL) Comprehensive metabolic panel (08/19/2016 1:32 PM EDT) Glucose 267(H) 65 - 99 mg/dL [facility] Comment: Fasting reference interval BUN 12 7 - 25 mg/dL [facility] Creatinine 0.63 0.50 - 0.99 mg/dL [facility] Comment: For patients >49 years of age, the reference limit for Creatinine is approximately 13% higher for people identified as -Mosotho. eGFR (NON -Mosotho) 95 > OR = 60 mL/min/1 .73m2 [facility] eGFR (Afr Amer) 110 > OR = 60 mL/min/1 .73m2 [facility] BUN/Creatinine Ratio NOT APPLICABLE 6 - 22 (calc) [facility] Sodium 139 135 - 146 mmol/L [facility] Potassium 4.1 3.5 - 5.3 mmol/L [facility] Chloride 103 98 - 110 mmol/L [facility] CO2 28 20 - 31 mmol/L [facility] Calcium 9.9 8.6 - 10.4 mg/dL [facility] Protein, Total 7.5 6.1 - 8.1 g/dL [facility] Albumin 4.3 3.6 - 5.1 g/dL [facility] Globulin 3.2 1.9 - 3.7 g/dL (calc) [facility] Albumin/Globulin Ratio 1.3 1.0 - 2.5 (calc) [facility] Bilirubin, Total 0.4 0.2 - 1.2 mg/dL [facility] Alkaline Phosphatase 82 33 - 130 U/L [facility] AST 12 10 - 35 U/L [facility] ALT 16 6 - 29 U/L [facility] Blood specimen (specimen) 08/19/2016 1:32 PM EDT 08/20/2016 5:04 AM EDT Narrative Resulting Agency Comment Performing Organization Information: Site ID: [id number] Name: [facility] Address: [address] [place] [address], [place] [address] Director: Alicia Oliveira MD us Gus Veras MD LAB BLOOD ORDERABLES Tracy l Result [facility] [address] [place] [address] from Last 3 Months or Most Recently Relevant to Health Maintenance Insurance MGD MGD MGD MGD
--- OUTSIDE RECORDS SUMMARY | 2025-10-20 22:18 | XMS_ITS | Encounter Summary ---
Author Organization [facility] Address [address] [place] [address] Care Team Providers Care Squeak Rattle And Leak Repairer Name Role Phone Gus Veras MD Primary Care Provider [phone] Encounter Details Date Type Department Care Team (Late st Contact Info) Description 08/03/2016 Scanned Document [facility] Internal Medicine [facility]. [address] [facility] [address] [place] [address] External, Provider Social History Tobacco Use Types Packs/Day Years [...] on filedocumented in this encounter Care Teams Squeak Rattle And Leak Repairer Relationship Specialty Start Date End Date Gus Veras MD [address] [place] [phone] PCP - General Internal Medicine 08/19/16 09/12/18 documented as of this encounter
== END 2025-10-20 14:16 | disposition home or self-care (01) ==
PROVIDERS: PCP Physician Assistant Medical; Visit Provider Nurse Practitioner Family
DX: M47.815 Spondylosis without myelopathy or radiculopathy, thoracolumbar region (principal); M54.9 Dorsalgia, unspecified; M51.369 Other intervertebral disc degeneration, lumbar region without mention of lumbar back pain or lower extremity pain; G89.4 Chronic pain syndrome
CPT/HCPCS: 99204

== ENCOUNTER → 2025-10-20 13:30 | Outpatient (BNVA) | payer MEDICARE, SELFPAY | PROVIDERS: PCP Physician Assistant Medical; Visit Provider Nurse Practitioner Family | DX: G89.4 Chronic pain syndrome (principal); M47.815 Spondylosis without myelopathy or radiculopathy, thoracolumbar region; M51.369 Other intervertebral disc degeneration, lumbar region without mention of lumbar back pain or lower extremity pain | CPT/HCPCS: 99202 ==